=== PATIENT | female | born 1960 | race Caucasian/White ===

== ENCOUNTER 2023-07-25 17:18 | Inpatient (IN) | payer OTHER, MEDICAID ==
[~2023-07-25] VITALS: Ht 167.6 cm; Wt 99.8 kg
[2023-07-25 17:21] VITALS: BP 152/53; PULSE 66; RESP 20; TEMP 98.1
[2023-07-25 18:07] LABS: BASOPHILS # (AUTO) 0.1 K/uL (0.00-0.22); BASOPHILS % (AUTO) 1.1 % (0.0-2.0); EOSINOPHILS # (AUTO) 0.3 K/uL (0-0.4); EOSINOPHILS % (AUTO) 4.7 % (0.0-4.0); HEMATOCRIT 43.8 % (36-48); HEMOGLOBIN 14.6 g/dL (12.0-16.0); LYMPHOCYTES # (AUTO) 1.9 K/uL (2.5-16.5); LYMPHOCYTES % (AUTO) 26.1 % (20.5-51.1); MEAN CORPUSCULAR HEMOGLOBIN 30 pg (27-31); MEAN CORPUSCULAR HGB CONC 33 g/dL (33-37); MEAN CORPUSCULAR VOLUME 90.7 fL (80-94); MONOCYTES # (AUTO) 0.8 K/uL (0.8-1.0); NEUTROPHILS # (AUTO) 4.1 K/uL (1.8-7.7); NEUTROPHILS % (AUTO) 57.1 % (42.2-75.2); PLATELET COUNT (AUTO) 312 K/uL (140-450); RED BLOOD CELL COUNT(AUTO) 4.83 MIL/uL (4.20-5.40); RED CELL DISTRIBUTION WIDTH 14.1 % (11.6-13.7); WHITE BLOOD COUNT (AUTO) 7.1 K/uL (4.8-10.8)
[2023-07-25 18:29] LABS: ANION GAP 14.7 (8-16); CALCIUM 9.2 mg/dL (8.5-10.1); CARBON DIOXIDE 28.7 mmol/L (21-32); CREATININE 0.9 mg/dL (0.6-1.3); POTASSIUM 4.4 mmol/L (3.5-5.1)
[2023-07-25 18:36] LABS: ALANINE AMINOTRANSFERASE 28 U/L (12-78); ALBUMIN 3.3 g/dL (3.4-5.0); ALKALINE PHOSPHATASE 84 U/L (50-136); ASPARTATE AMINOTRANSFERASE 22 U/L (15-37); BILIRUBIN,DIRECT 0.1 mg/dL (0.0-0.3); TOTAL BILIRUBIN 0.2 mg/dL (0.0-1.0)
[2023-07-25] MEDS ORDERED: LORazepam 1 MG TAB PO PRN (20:20)
[2023-07-25] MEDS ORDERED: ACETAMINOPHEN 325 MG TAB PO PRN (20:20)
[2023-07-25] MEDS ORDERED: KCL 20 MEQ IN 100 mL PREMIX 200 ML IV PRN (20:20)
[2023-07-25] MEDS ORDERED: MORPHINE SULFATE 4 MG/ML SYR IVP PRN (20:20)
[2023-07-25] MEDS ORDERED: MAG SULF 2000 MG/WATER PREMIX 50 ML IV PRN (20:20)
[2023-07-25] MEDS ORDERED: POTASSIUM CHLORIDE 10 MEQ TABER PO PRN (20:20)
[2023-07-25] MEDS ORDERED: HYDROcodone/APAP 5/325 MG 1 TAB TAB PO PRN (20:20)
[2023-07-25] MEDS ORDERED: ONDANSETRON 4 MG/2 ML VIAL IVP PRN (20:20)
[2023-07-25] MEDS ORDERED: ZOLPIDEM 5 MG TAB PO PRN (20:20)
[2023-07-25] MEDS ORDERED: NA P133E RC (21:02)
[2023-07-25] MEDS ORDERED: ARIP20TA PO (21:02)
[2023-07-25] MEDS ORDERED: MOM PO (21:02)
[2023-07-25] MEDS ORDERED: [UNRECOGNIZED DRUG - CODE] PO (21:02)
[2023-07-25] MEDS ORDERED: DOCU-2 PO (21:02)
[2023-07-25] MEDS ORDERED: LIDO1ADH90 TP (21:02)
[2023-07-25] MEDS ORDERED: ASPI-1749 PO (21:02)
[2023-07-25] MEDS ORDERED: BISA-213 RC (21:02)
[2023-07-25] MEDS ORDERED: HYDR-1093 PO (21:02)
[2023-07-25] MEDS ORDERED: TRAZ-344 PO (21:02)
[2023-07-25] MEDS ORDERED: [UNRECOGNIZED DRUG - CODE] PO (21:02)
[2023-07-25] MEDS ORDERED: FURO-572 PO (21:02)
[2023-07-25] MEDS: FUROSEMIDE 40 MG/4 ML VIAL IVP SCH (21:13)
[2023-07-25 22:00] VITALS: BP 129/71; PULSE 72; PULSE 73; RESP 18; TEMP 97.2; O2SAT 94
[2023-07-26] VITALS: BP 117/63; PULSE 57; PULSE 58; RESP 18; TEMP 96.8; O2SAT 94
[2023-07-26 04:00] VITALS: BP 123/53; PULSE 41; PULSE 54; RESP 18; TEMP 96; O2SAT 95
[2023-07-26 05:25] LABS: BASOPHILS # (AUTO) 0.1 K/uL (0.00-0.22); BASOPHILS % (AUTO) 1.1 % (0.0-2.0); EOSINOPHILS # (AUTO) 0.4 K/uL (0-0.4); HEMATOCRIT 41.6 % (36-48); LYMPHOCYTES % (AUTO) 33.6 % (20.5-51.1); MEAN CORPUSCULAR HEMOGLOBIN 30 pg (27-31); MEAN CORPUSCULAR HGB CONC 34 g/dL (33-37); MONOCYTES # (AUTO) 0.7 K/uL (0.8-1.0); NEUTROPHILS # (AUTO) 2.9 K/uL (1.8-7.7); NEUTROPHILS % (AUTO) 47.3 % (42.2-75.2); PLATELET COUNT (AUTO) 296 K/uL (140-450); RED BLOOD CELL COUNT(AUTO) 4.63 MIL/uL (4.20-5.40); RED CELL DISTRIBUTION WIDTH 14.3 % (11.6-13.7); WHITE BLOOD COUNT (AUTO) 6.1 K/uL (4.8-10.8)
[2023-07-26 05:46] LABS: ANION GAP 10.4 (8-16); CALCIUM 8.7 mg/dL (8.5-10.1); CARBON DIOXIDE 31.6 mmol/L (21-32); CREATININE 0.9 mg/dL (0.6-1.3)
[2023-07-26 08:00] VITALS: BP 140/70; PULSE 48; PULSE 63; PULSE 66; RESP 18; RESP 20; TEMP 97.4; O2SAT 97; O2SAT 98
[2023-07-26] MEDS: ENOXAPARIN 40 MG/0.4 ML SYR SUBQ SCH (08:36)
[2023-07-26] MEDS: LEVOTHYROXINE 0.075 MG TAB PO SCH (09:47)
[2023-07-26 12:00] VITALS: BP 137/60; PULSE 66; PULSE 67; RESP 20; TEMP 98; O2SAT 97
[2023-07-26 16:00] VITALS: BP 131/59; PULSE 61; PULSE 70; RESP 18; TEMP 98.2; O2SAT 97
[2023-07-26 20:00] VITALS: BP 120/56; PULSE 70; PULSE 76; RESP 18; TEMP 98.8; O2SAT 97
[2023-07-26] MEDS: FUROSEMIDE 20 MG/2 ML VIAL IVP SCH (20:51)
[2023-07-27] VITALS: BP 138/65; PULSE 66; PULSE 74; RESP 18; TEMP 97.2; O2SAT 96
[2023-07-27 04:00] VITALS: BP 115/70; PULSE 56; RESP 18; TEMP 97.2; O2SAT 97
[2023-07-27 05:15] LABS: BASOPHILS # (AUTO) 0.1 K/uL (0.00-0.22); BASOPHILS % (AUTO) 1.2 % (0.0-2.0); EOSINOPHILS # (AUTO) 0.3 K/uL (0-0.4); EOSINOPHILS % (AUTO) 4.6 % (0.0-4.0); HEMATOCRIT 42.6 % (36-48); HEMOGLOBIN 14.5 g/dL (12.0-16.0); LYMPHOCYTES % (AUTO) 27.3 % (20.5-51.1); MEAN CORPUSCULAR HEMOGLOBIN 30 pg (27-31); MEAN CORPUSCULAR HGB CONC 34 g/dL (33-37); MEAN CORPUSCULAR VOLUME 88.9 fL (80-94); MONOCYTES # (AUTO) 0.6 K/uL (0.8-1.0); MONOCYTES % (AUTO) 8.7 % (1.7-9.3); NEUTROPHILS # (AUTO) 4.2 K/uL (1.8-7.7); NEUTROPHILS % (AUTO) 58.2 % (42.2-75.2); PLATELET COUNT (AUTO) 317 K/uL (140-450); RED BLOOD CELL COUNT(AUTO) 4.79 MIL/uL (4.20-5.40); RED CELL DISTRIBUTION WIDTH 13.9 % (11.6-13.7); WHITE BLOOD COUNT (AUTO) 7.2 K/uL (4.8-10.8)
[2023-07-27 05:32] LABS: CALCIUM 8.6 mg/dL (8.5-10.1); CARBON DIOXIDE 29.9 mmol/L (21-32); CREATININE 0.9 mg/dL (0.6-1.3); POTASSIUM 3.9 mmol/L (3.5-5.1)
[2023-07-27] MEDS: LEVOTHYROXINE 0.075 MG TAB PO SCH (06:42)
[2023-07-27 08:00] VITALS: BP 125/72; PULSE 79; RESP 18; TEMP 98.4; O2SAT 96
[2023-07-27] MEDS: ASPIRIN 81 MG TAB.CHEW PO SCH (10:34)
[2023-07-27 12:00] VITALS: BP 123/71; PULSE 80; RESP 18; TEMP 98.6; O2SAT 97
[2023-07-27 16:00] VITALS: BP 127/75; PULSE 74; RESP 18; TEMP 98.3; O2SAT 98
[2023-07-27 20:00] VITALS: BP 121/65; PULSE 62; RESP 18; TEMP 98.1; O2SAT 97
[2023-07-28 05:21] LABS: BASOPHILS # (AUTO) 0.1 K/uL (0.00-0.22); BASOPHILS % (AUTO) 0.6 % (0.0-2.0); EOSINOPHILS # (AUTO) 0.3 K/uL (0-0.4); EOSINOPHILS % (AUTO) 3.6 % (0.0-4.0); HEMATOCRIT 42.2 % (36-48); HEMOGLOBIN 14.5 g/dL (12.0-16.0); LYMPHOCYTES % (AUTO) 21.1 % (20.5-51.1); MEAN CORPUSCULAR HEMOGLOBIN 31 pg (27-31); MEAN CORPUSCULAR HGB CONC 34 g/dL (33-37); MEAN CORPUSCULAR VOLUME 89.2 fL (80-94); MONOCYTES # (AUTO) 0.7 K/uL (0.8-1.0); MONOCYTES % (AUTO) 7.6 % (1.7-9.3); NEUTROPHILS # (AUTO) 6.4 K/uL (1.8-7.7); NEUTROPHILS % (AUTO) 67.1 % (42.2-75.2); PLATELET COUNT (AUTO) 365 K/uL (140-450); RED BLOOD CELL COUNT(AUTO) 4.73 MIL/uL (4.20-5.40); RED CELL DISTRIBUTION WIDTH 14.1 % (11.6-13.7); WHITE BLOOD COUNT (AUTO) 9.5 K/uL (4.8-10.8)
[2023-07-28 05:29] LABS: ANION GAP 10.4 (8-16); CALCIUM 8.5 mg/dL (8.5-10.1); CARBON DIOXIDE 28.5 mmol/L (21-32); CREATININE 0.8 mg/dL (0.6-1.3); POTASSIUM 3.9 mmol/L (3.5-5.1)
[2023-07-28 08:00] VITALS: BP 128/67; PULSE 72; RESP 16; TEMP 97.8; O2SAT 97
[2023-07-28] MEDS: FUROSEMIDE 20 MG/2 ML VIAL IVP SCH (09:26)
== END 2023-07-28 16:00 | DRG 641 ==
LOC: MED 17:18 → MTU 20:23 → OBSVTOIN 20:23 → MTU 20:51
PROVIDERS: ADMIT Hospitalist; ATTEND Hospitalist
DX: E87.70 Fluid overload, unspecified (principal); E44.0 Moderate protein-calorie malnutrition; F32.A Depression, unspecified; F41.9 Anxiety disorder, unspecified; E03.9 Hypothyroidism, unspecified; E78.5 Hyperlipidemia, unspecified; Z79.82 Long term (current) use of aspirin; Z79.899 Other long term (current) drug therapy; I10 Essential (primary) hypertension; Z68.35 Body mass index [BMI] 35.0-35.9, adult
CPT/HCPCS: 36415; 71045; 80048; 80076; 83735; 83880; 84439; 84443; 84484; 85025; 87081; 93005; 97110; 97112; 97530; 99285; J1650; J1940